=== PATIENT | male | born 2000 | race Caucasian/White ===

== ENCOUNTER 2021-11-09 16:32 | Emergency (ER) | payer MEDICAID ==
[~2021-11-09] VITALS: Ht 190.5 cm; Wt 72.7 kg
[2021-11-09 16:56] VITALS: BP 126/72
[2021-11-09] MEDS ORDERED: ibuprofen 200mg tablet PO ONE ×2 (18:45)
[2021-11-09] MEDS ORDERED: ibuprofen tablet 400 MG TABLET PO ONE (18:45)
[2021-11-09] MEDS ORDERED: HYDROcodone/acetaminophen 5mg/325mg tablet PO ONE (19:30)
== END 2021-11-09 20:20 | disposition home or self-care (01) ==
LOC: ER 16:32
DX: R22.31 Localized swelling, mass and lump, right upper limb (principal); M79.601 Pain in right arm; F17.200 Nicotine dependence, unspecified, uncomplicated
CPT/HCPCS: 73090; 99283